=== PATIENT | female | born 1995 | race African-American/Black ===

== ENCOUNTER 2021-11-18 10:27 | Emergency (ER) | payer BC ==
[2021-11-18 11:11] LABS: Urine Blood Negative (Negative); Urine Glucose Negative (Negative); Urine Protein Negative (Negative); Urine Specific Gravity 1.015 (1.005-1.030); Urine pH 7.5 (5.0-7.0)
--- NOTE | 2021-11-18 11:53 | ER ---
Nurse's Notes [facility] Name: Jessica Rodriguez Age: 26 yrs Sex: Female : 1995 Arrival Date: 11/18/2021 Time: 10:31 Bed 24 Private MD: Diagnosis: UTI/ Urinary tract infection, site not specified Presentation: 11/18 10:39 Chief complaint: Patient states: "I've had lower abdominal pain for 1-2 weeks now. I ab2 missed my cycle this month but my at home test was negative." Pt denies N/V/D. Pt does say she recently had UTI and was treated about a month ago. Coronavirus screen: Vaccine status: Patient reports receiving the 2nd dose of the covid vaccine. Client denies travel out of the [place] in the last 14 days. At this time, the client does not indicate any symptoms associated with coronavirus-19. Ebola Screen: Patient negative for fever greater than or equal to 101.5 degrees Fahrenheit, and additional compatible Ebola Virus Disease symptoms Patient denies exposure to infectious person. Patient denies travel to an Ebola-affected area in the 21 days before illness onset. No symptoms or risks identified at this time. Initial Sepsis Screen: Does the patient meet any 2 criteria? No. Patient's initial sepsis screen is negative. Does the patient have a suspected source of infection? No. Patient's initial sepsis screen is negative. Risk Assessment: Do you want to hurt yourself or someone else? Patient reports no desire to harm self or others. Onset of symptoms is unknown. 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 - Social history:: Smoking status: Patient denies any tobacco usage or history of. Patient/guardian denies using alcohol, street drugs, The patient lives with family. - Family history:: not pertinent. Screenin:43 Abuse screen: Denies threats or abuse. Denies injuries from another. Nutritional ab2 screening: No deficits noted. Tuberculosis screening: No symptoms or risk factors identified. Fall Risk None identified. Assessment: 10:42 Reassessment:. General: Appears in no apparent distress. comfortable, Behavior is calm, ab2 cooperative, appropriate for age. Pain: Complains of pain in suprapubic area, right lower quadrant and left lower quadrant Pain does not radiate. Pain currently is 6 out of 10 on a pain scale. Quality of pain is described as aching, crampy. Neuro: No deficits noted. 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 Gait is steady. Cardiovascular: No deficits noted. Denies chest pain, shortness of breath, Heart tones S1 S2 present Patient's skin is warm and dry. Respiratory: No deficits noted. Airway is patent Respiratory effort is even, unlabored, Respiratory pattern is regular, symmetrical, Breath sounds are clear bilaterally. GI: Abdomen is round non-distended, Bowel sounds present X 4 quads. Abdomen is tender to palpation in suprapubic area Reports lower abdominal pain, cramping. : No deficits noted. No signs and/or symptoms were reported regarding the genitourinary system. EENT: No deficits noted. No signs and/or symptoms were reported regarding the EENT system. Derm: No deficits noted. No signs and/or symptoms reported regarding the dermatologic system. Skin is intact, is healthy with good turgor, Skin is dry, Skin is pink, warm \\T\\ dry. Musculoskeletal: No deficits noted. No signs and/or symptoms reported regarding the musculoskeletal system. 11:15 Reassessment: Patient appears in no apparent distress at this time. Pt gave urine ab2 sample. Urine ran per physician order. Awaiting disposition. Patient denies any needs at this time. Vital Signs: 10:39 BP 141 / 82; Pulse 82; Resp 16; Temp 97.9(TE); Pulse Ox 100% on R/A; Weight 104.33 kg; ab2 Height 5 ft. 5 in. (165.10 cm); Pain 610; 11:04 BP 141 / 82; Pulse 75; Resp 16; Pulse Ox 100% on R/A; ab2 12:02 BP 129 / 70; Pulse 71; Resp 16; Pulse Ox 100% on R/A; ab2 10:39 Body Mass Index 38.27 (104.33 kg, 165.10 cm) ab2 ED Course: 10:31 Patient arrived in ED. mr 10:37 Clayton Garcia MD is Attending Physician. ma2 10:39 Wayne Clark is Primary Nurse. ab2 10:41 Triage completed. ab2 10:43 Arm band placed on right wrist. ab2 10:43 No provider procedures requiring assistance completed. ab2 10:44 Patient has correct armband on for positive identification. Placed in gown. Bed in low ab2 position. Call light in reach. Side rails up X2. 12:03 Patient did not have IV access during this emergency room visit. ab2 Administered Medications: No medications were administered Outcome: 11:52 Discharge ordered by . ma2 12:02 Discharged to home ambulatory. ab2 12:02 Condition: good 12:02 Discharge instructions given to patient, Instructed on discharge instructions, follow up and referral plans. medication usage, Demonstrated understanding of instructions, follow-up care, medications, Prescriptions given X 2. 12:03 Patient left the ED. ab2 Signatures: Eric Araceli mr Clayton Garcia MD MD maWayne Ferreira ab2 Corrections: (The following items were deleted from the chart) 10:45 10:39 Acuity: MIKKI 3 ab2 ab2
--- NOTE | 2021-11-18 11:53 | EDPHYS ---
Physician Documentation [facility] Name: Jessica Rodriguez Age: 26 yrs Sex: Female : 1995 Arrival Date: 11/18/2021 Time: 10:31 Bed 24 Private MD: ED Physician Clayton Garcia HPI: 11/18 10:47 This 26 yrs old Black Female presents to ER via Ambulatory with complaints of Abdominal ma2 Pain. 10:47 26-year-old healthy female, with no past medical history, does not take any medication, ma2 patient is here for test, she states that she has suprapubic abdominal burning for a month that has been on and off, very mild, no symptom at this time. Patient does not have vomiting or diarrhea at this time.. 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 - Social history:: Smoking status: Patient denies any tobacco usage or history of. Patient/guardian denies using alcohol, street drugs, The patient lives with family. - Family history:: not pertinent. ROS: 10:47 Negative for urinary frequency, pelvic pain, difficulty urinating. ma2 10:47 Constitutional: Negative for fever, chills, and weight loss. 10:47 All other systems are negative. Exam: 10:47 Constitutional: This is a well developed, well nourished patient who is awake, alert, ma2 and in no acute distress. Head/Face: Normocephalic, atraumatic. Eyes: Pupils equal round and reactive to light, extra-ocular motions intact. Lids and lashes normal. Conjunctiva and sclera are non-icteric and not injected. Cornea within normal limits. Periorbital areas with no swelling, redness, or edema. ENT: Nares patent. No nasal discharge, no septal abnormalities noted. Tympanic membranes are normal and external auditory canals are clear. Oropharynx with no redness, swelling, or masses, exudates, or evidence of obstruction, uvula midline. Mucous membranes moist. Neck: Trachea midline, no thyromegaly or masses palpated, and no cervical lymphadenopathy. Supple, full range of motion without nuchal rigidity, or vertebral point tenderness. No Meningismus. Chest/axilla: Normal chest wall appearance and motion. Nontender with no deformity. No lesions are appreciated. Cardiovascular: Regular rate and rhythm with a normal S1 and S2. No gallops, murmurs, or rubs. Normal PMI, no JVD. No pulse deficits. Respiratory: Lungs have equal breath sounds bilaterally, clear to auscultation and percussion. No rales, rhonchi or wheezes noted. No increased work of breathing, no retractions or nasal flaring. Abdomen/GI: Soft, non-tender, with normal bowel sounds. No distension or tympany. No guarding or rebound. No evidence of tenderness throughout. Back: No spinal tenderness. No costovertebral tenderness. Full range of motion. Skin: Warm, dry with normal turgor. Normal color with no rashes, no lesions, and no evidence of cellulitis. MS/ Extremity: Pulses equal, no cyanosis. Neurovascular intact. Full, normal range of motion. Neuro: Awake and alert, GCS 15, oriented to person, place, time, and situation. Cranial nerves II-XII grossly intact. Motor strength 5/5 in all extremities. Sensory grossly intact. Cerebellar exam normal. Normal gait. Vital Signs: 10:39 BP 141 / 82; Pulse 82; Resp 16; Temp 97.9(TE); Pulse Ox 100% on R/A; Weight 104.33 kg; ab2 Height 5 ft. 5 in. (165.10 cm); Pain 6/10; 11:04 BP 141 / 82; Pulse 75; Resp 16; Pulse Ox 100% on R/A; ab2 12:02 BP 129 / 70; Pulse 71; Resp 16; Pulse Ox 100% on R/A; ab2 10:39 Body Mass Index 38.27 (104.33 kg, 165.10 cm) ab2 MDM: 10:37 Patient medically screened. ma2 10:47 Differential diagnosis: nonspecific abdominal pain, urinary tract infection, ma2 26-year-old female with no symptom at this time, she has been having chronic lower abdominal pain. She already followed up with primary care doctor and had ultrasound scheduled as nonemergent. Patient is here for test. 11:52 Data reviewed: vital signs, nurses notes. Counseling: I had a detailed discussion with john2 the patient and/or guardian regarding: the historical points, exam findings, and any diagnostic results supporting the discharge/admit diagnosis, the presence of at least one elevated blood pressure reading (>120/80) during this emergency department visit, the need for outpatient follow up. Response to treatment: the patient's symptoms have markedly improved after treatment. 11/18 11:11 Order name: Urine Dipstick-Ancillary; Complete Time: 11:26 EDMS 11/18 11:12 Order name: Urine --Ancillary (enter results) eb 11/18 10:42 Order name: Urine Dipstick-Ancillary (obtain specimen); Complete Time: 11:11 ma2 11/18 10:42 Order name: Urine Test (obtain specimen); Complete Time: 11:11 [facility] 11/18 11:13 Order name: Urine --Ancillary EDND Administered Medications: No medications were administered Disposition Summary: 11/18/21 11:52 Discharge Ordered Location: Home ma2 Condition: Stable ma2 Diagnosis - UTI/ Urinary tract infection, site not specified ma2 Followup: ma2 - With: Private Physician - When: Tomorrow - Reason: Continuance of care Discharge Instructions: - Discharge Summary Sheet ma2 - Urinary Tract Infection, Adult ma2 Forms: - Medication Reconciliation Form ma2 - Thank You Letter ma2 - Antibiotic Education ma2 - Prescription Opioid Use ma2 Prescriptions: - ketorolac 10 mg Oral tablet - take 1 tablet by ORAL route every 6 hours not to exceed 40 mg in 24hrs; 20 ma2 tablet; Refills: 0, Product Selection Permitted - Cipro 500 mg Oral Tablet - take 1 tablet by ORAL route every 12 hours for 7 days; 14 tablet; Refills: 0, ma2 Product Selection Permitted Signatures: Dispatcher [employer] EDND Clayton Garcia MD MD ma2 Wayne Clark
[2021-11-18 12:48] VITALS: TEMP 97.9; O2SAT 100
[2021-11-18 12:48] LABS: Urine Specific Gravity/Preg 1.015 (1.005-1.030)
[2021-11-18 12:51] VITALS: BP 129/70
== END 2021-11-18 12:03 | disposition home or self-care (01) ==
LOC: ER 10:27
DX: N39.0 Urinary tract infection, site not specified (principal)
CPT/HCPCS: 81003; 81025; 99282